=== PATIENT | female | born 1985 | race Hispanic/Latino ===

== ENCOUNTER 2017-12-29 08:43 | Emergency (ER) | payer SELFPAY | END 2017-12-29 09:24 | disposition home or self-care (01) | LOC: EDH 08:43 | DX: K08.89 Other specified disorders of teeth and supporting structures (principal); Z98.890 Other specified postprocedural states; Z72.0 Tobacco use | CPT/HCPCS: 99281 ==

== ENCOUNTER 2019-04-16 13:51 | Emergency (ER) | payer MEDICAID, OTHER ==
[2019-04-16 14:57] LABS: BASOPHILS % (AUTO) 0.3 % (0.0-5.0); EOSINOPHILS % (AUTO) 0.1 % (0.0-8.0); HEMATOCRIT 42.3 % (36-48); MEAN CORPUSCULAR HEMOGLOBIN 30.3 pg (27.0-33.0); MEAN CORPUSCULAR HGB CONC 33.3 g/dL (32.0-36.0); MONOCYTES % (AUTO) 6.2 % (3.0-13.0); PLATELET COUNT (AUTO) 187 K/uL (130-400); RED BLOOD CELL COUNT(AUTO) 4.65 MIL/uL (4.00-5.50); RED CELL DISTRIBUTION WIDTH 13.2 % (11.0-15.5); WHITE BLOOD COUNT (AUTO) 12.9 K/uL (4.8-10.8)
[2019-04-16 14:58] LABS: APPEARANCE,URINE Cloudy (CLEAR); BILIRUBIN,URINE Negative (NEGATIVE); COLOR,URINE Yellow (YELLOW); GLUCOSE, URINE (UA) Negative (NEGATIVE); KETONES,URINE 15 mg/dL (NEGATIVE); LEUKOCYTE ESTERASE ,URINE Moderate (NEGATIVE); NITRATE,URINE Negative (NEGATIVE); OCCULT BLOOD,URINE Negative (NEGATIVE); PH,URINE 6.5 (5.0-8.0); PROTEIN,URINE Trace mg/dL (NEGATIVE)
[2019-04-16 15:01] LABS: HCG,QUAL RESULT NEGATIVE (NEGATIVE)
[2019-04-16 15:06] LABS: AMPHET/METH SCREEN,URINE NEGATIVE (NEGATIVE); BARBITURATE SCREEN, URINE NEGATIVE (NEGATIVE); BENZODIAZEPINES SCREEN,URINE POSITIVE (NEGATIVE); CANNABINOID SCREEN,URINE POSITIVE (NEGATIVE); COCAINE SCREEN,URINE NEGATIVE (NEGATIVE); OPIATE SCREEN,URINE NEGATIVE (NEGATIVE); PHENCYCLIDINE SCREEN,URINE NEGATIVE (NEGATIVE)
[2019-04-16 15:08] LABS: CREATININE 0.6 mg/dL (0.5-1.5); POTASSIUM 4.3 mmol/L (3.5-5.1)
[2019-04-16 15:13] LABS: ALBUMIN 4.2 g/dL (3.5-5.0); BILIRUBIN,TOTAL 0.8 mg/dL (0.2-1.0); TOTAL PROTEIN, SERUM 8.1 g/dL (6.0-8.3)
[2019-04-16 15:16] LABS: BACTERIA,URINE Few /HPF (None Seen); MUCUS,URINE Few LPF (None Seen); SQUAMOUS EPITHELIAL CELL,UR Many /HPF (0-2)
[2019-04-16] MEDS ORDERED: FOSPHENYTOIN SODIUM 500 MG/10ML VIAL IJ ONE ×2 (15:36→15:39)
[2019-04-16] MEDS ORDERED: SODIUM CHLORIDE 0.9% 100 ML IV ONE ×2 (15:37→15:39)
== END 2019-04-16 17:37 | disposition home or self-care (01) ==
LOC: EDH 13:51
DX: S01.511A Laceration without foreign body of lip, initial encounter (principal); G40.909 Epilepsy, unspecified, not intractable, without status epilepticus; F10.10 Alcohol abuse, uncomplicated; N39.0 Urinary tract infection, site not specified; Z72.0 Tobacco use; V49.69XA Unspecified car occupant injured in collision with other motor vehicles in traffic accident, initial encounter; Y93.89 Activity, other specified; Y92.89 Other specified places as the place of occurrence of the external cause; Y99.8 Other external cause status
CPT/HCPCS: 36415; 70450; 80053; 80305; 81001; 81025; 85025; 96365; 96366; 99285; Q2009 ×2

== ENCOUNTER 2020-10-29 09:15 | Emergency (ER) | payer MEDICAID, OTHER ==
[~2020-10-29] VITALS: Ht 154.9 cm; Wt 59.0 kg
[2020-10-29 10:20] VITALS: BP 121/72
[2020-10-29] MEDS ORDERED: IVER3TAB PO (11:25)
[2020-10-29 11:34] VITALS: BP 107/64
== END 2020-10-29 11:48 | disposition home or self-care (01) ==
LOC: EDH 09:15
DX: U07.1 COVID-19 (principal); Z72.0 Tobacco use; Z79.899 Other long term (current) drug therapy
CPT/HCPCS: 87635; 87804 ×2; 99283; C9803